=== PATIENT | female | born 1950 | race Asian ===

== ENCOUNTER → 2016-10-02 | Outpatient (CLI) | payer OTHER, MEDICARE ==
[~2016-10-02] VITALS: Ht 157.5 cm; Wt 61.2 kg
[~2016-10-02] MED LIST: ANASTROZOLE1 MG PO; CENTRUM SILVER1 EAC4 PO; FISH OIL 1,001000 M2 PO; NORCO 5-325 TA1 EACH PO; OMEPRAZOLE 20 M20 M1 PO
--- NOTE | ~2016-10-02 | P ---
[facility] [place] [address] PROCEDURE REPORT Name: NNAMDI MILTON Room #: REG [facility]#: [id number] Admission: 10/02/16 Attend Phys: All Hernandez MD Discharge: Date of : 46 Report #: [id number] THIS REPORT FOR: //name// CC: All Ruelas MD BRIEF HISTORY: The patient is a 66-year-old woman with history of colon polyps. Last exam was 5 years ago. PREOPERATIVE DIAGNOSIS: High risk screening colonoscopy due to history of colon polyps. POSTOPERATIVE DIAGNOSES: Small internal hemorrhoids. MEDICATIONS: Deep sedation with propofol per anesthesia. SPECIMEN: None. ESTIMATED BLOOD LOSS: None. PROCEDURE: Colonoscopy to cecum and terminal ileum. FINDINGS: Prior to propofol sedation, procedure of colonoscopy discussed with the patient as well as potential risks and its complications. She indicates she understands and desires to proceed. DESCRIPTION OF PROCEDURE: With the patient in left lateral decubitus position, digital examination was completed which revealed no abnormalities. Subsequently, the [employer] video colonoscope was introduced into the rectum and advanced under direct vision to the cecum. Done with minimal difficulty. The cecum was identified by the ileocecal valve and the appendiceal orifice. I was able to visualize the distal segment of terminal ileum, which was inspected and noted to be unremarkable. At that point, the scope was slowly withdrawn and careful circumferential views were obtained including retroflexing the scope in the ascending colon. Upon slow withdrawal of the scope, the prep was noted to be good. The mucosa was normal limits, normal vascular pattern, normal light reflex. As we withdrew the scope, no neoplastic lesions were seen. She had normal mucosa throughout. No abnormalities were seen. The scope was withdrawn through the colon into the rectum. Upon retroflexion, small hemorrhoids were seen. Scope was withdrawn. The patient tolerated the procedure well. CONDITION OF THE PATIENT UPON DISCHARGE: Following procedure, the patient drowsy, aroused, conversant and will be discharged home when fully ambulatory. INSTRUCTIONS TO THE PATIENT AND FAMILY AT THE TIME OF DISCHARGE: No neoplastic lesions were seen. We will have her return in 10 years for a followup [facility] [address] [place] [address] PROCEDURE REPORT Name: NNAMDI MILTON Room #: REG [facility]#: [id number] Admission: 10/02/16 Attend Phys: All Hernandez MD Discharge: Date of : 46 Report #: [id number] colonoscopy. Last colonoscopy was 5 years ago. Withdrawal time from the cecum was 14 minutes. <ELECTRONICALLY SIGNED> By: All Hernandez MD 10/03/16 1615 [id number] [id number] All Hernandez MD /nt
--- NOTE | ~2016-10-02 | P ---
[facility] [place] [address] PROCEDURE REPORT Name: NNAMDI MILTON Room #: REG [facility]#: [id number] Admission: 10/02/16 Attend Phys: All Hernandez MD Discharge: Date of : 46 Report #: [id number] THIS REPORT FOR: //name// CC: All Ruelas MD DATE OF SERVICE: 10/02/2016 BRIEF HISTORY: The patient is a 66-year-old woman with complaints of early satiety. She has not had significant problems with nausea and vomiting. She also has had a submucosal duodenal lesion. She has had dysphagia, had been dilated in the past, but has no complaints of dysphagia at this time. PREOPERATIVE DIAGNOSES: Early satiety and history of duodenal submucosal lesion. POSTOPERATIVE DIAGNOSES: 1. A 1-cm benign-appearing submucosal lesion, second portion of duodenum, stable and unchanged. 2. Erythematous gastritis. MEDICATIONS: Deep sedation with propofol per anesthesia. SPECIMEN: None. ESTIMATED BLOOD LOSS: None. PROCEDURE: EGD. FINDINGS: Prior to propofol sedation, procedure of upper endoscopy was discussed with the patient as well as potential risks and its complications. She indicates she understands and desires to proceed. DESCRIPTION OF PROCEDURE: With the patient in left lateral decubitus position, the Fuji video endoscope was inserted in the cervical esophagus under direct vision without difficulty. Examination of this organ to its entire length revealed normal esophageal mucosa down the squamocolumnar junction. Squamocolumnar junction was inspected and noted to be unremarkable. She has no complaints of dysphagia. There is a history of Schatzki ring, none was seen today. A hiatus hernia was not seen. Scope was advanced in the stomach, was examined on end view as well as retroflexed views. There was erythema in the antrum. Biopsies were negative for H. pylori 5 years ago. Those were not repeated today. Upon retroflexion, no mass lesions were seen. The pylorus was normal. Duodenal bulb was normal. Second portion of duodenum was a 1 cm smooth benign-appearing submucosal lesion. This appeared to be unchanged from exam 5 [facility] [address] [place] [address] PROCEDURE REPORT Name: NNAMDI MILTON Room #: REG [facility].#: [id number] Admission: 10/02/16 Attend Phys: All Hernandez MD Discharge: Date of : 46 Report #: [id number] years ago and biopsy revealed a smooth muscle and this is likely a small leiomyoma. It is stable and unchanged and biopsies were not repeated today. The remainder of duodenal sweep was unremarkable. At that point, the scope was slowly withdrawn and careful circumferential views confirmed the above findings. The patient tolerated the procedure well. CONDITION OF THE PATIENT UPON DISCHARGE: Following procedure, the patient drowsy and prepared for colonoscopy. INSTRUCTIONS TO THE PATIENT AND FAMILY AT THE TIME OF DISCHARGE: As far early satiety, I do not see evidence of outlet obstruction or other evidence of retained material in stomach. We will obtain a gastric emptying study for further evaluation. At this point in time, we will proceed with colonoscopy due to her history of colon polyps. <ELECTRONICALLY SIGNED> By: All Hernandez MD 10/03/16 1615 1116 [id number] All Hernandez MD /nt
== END | disposition home or self-care (01) ==
LOC: GI 08:17
DX: Z12.11 Encounter for screening for malignant neoplasm of colon (principal); K64.8 Other hemorrhoids; K29.70 Gastritis, unspecified, without bleeding; K31.9 Disease of stomach and duodenum, unspecified; R68.81 Early satiety; K21.9 Gastro-esophageal reflux disease without esophagitis; Z86.010 Personal history of colon polyps; Z85.3 Personal history of malignant neoplasm of breast; Z98.42 Cataract extraction status, left eye; Z98.41 Cataract extraction status, right eye; Z96.1 Presence of intraocular lens; Z98.890 Other specified postprocedural states
CPT/HCPCS: 43235; G0105; 62110; 62900

== ENCOUNTER → 2016-10-10 | Outpatient (CLI) | payer OTHER, MEDICARE | LOC: NUC 08:33 | DX: R68.81 Early satiety (principal); R10.9 Unspecified abdominal pain ==